=== PATIENT | male | born 1970 | race Caucasian/White ===

== ENCOUNTER 2022-05-08 13:35 | Inpatient (IN) | payer BC, MEDICAID ==
[~2022-05-08] VITALS: Ht 167.6 cm; Wt 59.0 kg
[2022-05-08 13:38] VITALS: BP 90/41
[2022-05-08] MEDS ORDERED: levETIRAcetam 1,000 MG in NACL 0.9% 100 ML IV ONE ×2 (13:45→18:00)
--- NOTE | 2022-05-08 13:48 | NUR ---
LAB AT BEDSIDE
--- NOTE | 2022-05-08 13:49 | NUR ---
51 Y/O MALE BIBA FROM HOME C/O SEIZURE, PER EMS 3 SEIZURES BEFORE EMS ARRIVAL UNKNOWN DURATION, WITNESSED BY FAMILY, 3 SEIZURES WITNESSED BY EMS, 10 SECONDS EACH, TONIC-CLONIC. GIVEN 2.5 MG OF VERSED BY EMS, PT NOW A/OX4, VERBALLY RESPONSIVE. NO ORAL TRAUMA OR SKIN TEARS NOTED, SEIZURE PADS IN PLACE NKA PMH: EPILEPSY (COMPLIANT WITH MEDICATION LAST TAKEN AT 0600 TODAY)
--- NOTE | 2022-05-08 13:51 | NUR ---
PT GIVEN URINAL
[2022-05-08 13:59] LABS: BASOPHILS # (AUTO) 0.1 K/uL (0.00-0.22); BASOPHILS % (AUTO) 1.1 % (0.0-2.0); EOSINOPHILS # (AUTO) 0.1 K/uL (0-0.4); HEMATOCRIT 42.9 % (36-52); HEMOGLOBIN 14.3 g/dL (12.0-18.0); LYMPHOCYTES # (AUTO) 0.9 K/uL (2.0-11.5); LYMPHOCYTES % (AUTO) 15.7 % (20.5-51.1); MEAN CORPUSCULAR HEMOGLOBIN 31 pg (27-31); MEAN CORPUSCULAR HGB CONC 33 g/dL (33-37); MEAN CORPUSCULAR VOLUME 93.9 fL (80-94); MONOCYTES # (AUTO) 0.4 K/uL (0.8-1.0); MONOCYTES % (AUTO) 7.2 % (1.7-9.3); NEUTROPHILS # (AUTO) 4.1 K/uL (1.8-7.7); PLATELET COUNT (AUTO) 190 K/uL (140-450); RED BLOOD CELL COUNT(AUTO) 4.57 MIL/uL (4.20-6.10); RED CELL DISTRIBUTION WIDTH 14.8 % (11.6-13.7); WHITE BLOOD COUNT (AUTO) 5.5 K/uL (4.8-10.8)
--- NOTE | 2022-05-08 14:00 | NUR ---
ZACK LOYD [phone]
--- NOTE | 2022-05-08 14:28 | NUR ---
PT STATED THAT HE IS UNABLE TO PROVIDE URINE AT THIS TIME
[2022-05-08 14:34] LABS: ALBUMIN 3.7 g/dL (3.4-5.0); ANION GAP 11.1 (8-16); CARBON DIOXIDE 26.9 mmol/L (21-32); CREATININE 0.9 mg/dL (0.6-1.3); TOTAL BILIRUBIN 0.4 mg/dL (0.0-1.0)
--- NOTE | 2022-05-08 15:35 | NUR ---
URINE HANDED TO Going TECH
--- NOTE | 2022-05-08 15:37 | NUR ---
DR RAZO SPEAKING TO IN LOBBY
[2022-05-08 15:57] LABS: BARBITURATE, URINE NEGATIVE ng/ml (NEG <=200); BENZODIAZEPINE, URINE NEGATIVE ng/mL (NEG <=200); CANNABINOID, URINE POSITIVE ng/mL (NEG <=50); COCAINE, URINE NEGATIVE ng/mL (NEG <=300); OPIATE, URINE NEGATIVE ng/mL (NEG <=2000); PHENCYCLIDINE SCREEN,URINE NEGATIVE ng/mL (NEG <=25)
--- NOTE | 2022-05-08 16:22 | NUR ---
MACHINE DEICER ELEMENT WINDER AT BEDSIDE
[2022-05-08] MEDS ORDERED: LEVE1000 PO (16:28)
[2022-05-08] MEDS ORDERED: GABA400C PO ×2 (16:28)
[2022-05-08] MEDS ORDERED: OMEP40EC23 PO (16:28)
[2022-05-08] MEDS ORDERED: LAM200 PO ×2 (16:28)
[2022-05-08] MEDS ORDERED: KETOROLAC 15 MG/ML VIAL IVP ONE (16:55)
--- NOTE | 2022-05-08 17:08 | NUR ---
SWABS HANDED TO PRADIP
[2022-05-08] MEDS ORDERED: LORazepam 2 MG/ML VIAL IVP ONE (18:00)
[2022-05-08] MEDS ORDERED: MORPHINE SULFATE 4 MG/ML SYR IVP ONE (18:05)
[2022-05-08] MEDS ORDERED: levETIRAcetam 500 MG TAB PO ONE (18:05)
--- NOTE | 2022-05-08 18:20 | NUR ---
pt taken to ct via ari[facility]
--- NOTE | 2022-05-08 18:28 | NUR ---
BACK FROM CT SCAN
--- NOTE | 2022-05-08 19:16 | NUR ---
REPORT GIVEN TO BELEM FARR, TRANSFER OF CARE AT THIS TIME
--- NOTE | 2022-05-08 19:22 | NUR ---
NUEROLOGIST AT BEDSIDEW
--- NOTE | 2022-05-08 19:40 | NUR ---
PER PT MAY HAVE FOOD TO EAT. PT'S STATED SHE GRAB HIM SOME FOOD.
--- NOTE | 2022-05-08 19:56 | NUR ---
SPOKE TO , HE WANTED CLARIFICATION TO WHERE PT SHOULD BE ADMITTED, STATED IT IS THE NEUROLOGIST PATRIZIA. DR. MUSA STATED PT CAN BE ADMITED TO TELE. STATED TELE IS OK THEN AND HE WILL PLACE ORDERS.
[2022-05-08] MEDS ORDERED: ONDANSETRON 4 MG/2 ML VIAL IVP PRN (20:00)
[2022-05-08] MEDS ORDERED: ACETAMINOPHEN 325 MG TAB PO PRN (20:00)
[2022-05-08] MEDS ORDERED: HYDROcodone/APAP 5/325 MG 1 TAB TAB PO PRN (20:00)
[2022-05-08] MEDS ORDERED: LORazepam 1 MG TAB PO PRN (20:00)
--- NOTE | 2022-05-08 20:45 | NUR ---
PAGED TO CLARIFY ORDERS PER PHARMACY. WAITING FOR CALL BACK.
[2022-05-08] MEDS ORDERED: GABAPENTIN 100 MG CAP PO SCH ×3 (21:00→21:48)
[2022-05-08] MEDS: levETIRAcetam 1,000 MG in NACL 0.9% 100 ML IV SCH (21:04)
--- NOTE | 2022-05-08 21:16 | NUR ---
SPOKE TO , STATED TO ASK PT HIS DOSAGE AND TIME OF ADMIN AND GO BY THAT. PT'S VERIFIED MEDICAITION. ORDERS CARRIED OUT. I CALLED AFTER HOURS PHARMCY AND SPOKE TO MEGAN ABOUT GOING FORTH WITH GABAPENTIN AND LAMICTAL. MICHELLE IS 400MG BID AND 600MG AT BEDTIME. LAMICTAL 200MG IN AM AND 300MG AT PM.
[2022-05-08 22:30] VITALS: BP 107/62
--- NOTE | 2022-05-08 22:34 | NUR ---
Patient will be admitted to [facility]. Admited to TELE. Will go to [id number]. Belongings list completed. Report to YORDAN SANTAMARIA.
[2022-05-09 05:00] VITALS: BP 96/53
--- NOTE | 2022-05-09 07:20 | NUR ---
RECEIVED BEDSIDE REPORT FROM [facility] YORDAN SANTAMARIA FOR CONTINUITY OF CARE. PT IS A&OX4 CURRENTLY RESTING IN BED. PT IS ON ROOM AIR, WITH UNLABORED BREATHING. PTS BED IS IN LOWEST POSITION, CALL LIGHT WITHIN REACH. PT HAS 20G IV ON THE RIGHT AC WHICH IS SALINE LOCKED. WILL CONTINUE TO MONITOR.
[2022-05-09 07:29] LABS: BASOPHILS % (AUTO) 0.4 % (0.0-2.0); EOSINOPHILS # (AUTO) 0.1 K/uL (0-0.4); EOSINOPHILS % (AUTO) 2.6 % (0.0-4.0); HEMATOCRIT 44.3 % (36-52); HEMOGLOBIN 14.9 g/dL (12.0-18.0); LYMPHOCYTES % (AUTO) 20.6 % (20.5-51.1); MEAN CORPUSCULAR HEMOGLOBIN 32 pg (27-31); MEAN CORPUSCULAR HGB CONC 34 g/dL (33-37); MONOCYTES # (AUTO) 0.4 K/uL (0.8-1.0); MONOCYTES % (AUTO) 8.5 % (1.7-9.3); NEUTROPHILS # (AUTO) 3.2 K/uL (1.8-7.7); NEUTROPHILS % (AUTO) 67.9 % (42.2-75.2); PLATELET COUNT (AUTO) 204 K/uL (140-450); RED BLOOD CELL COUNT(AUTO) 4.71 MIL/uL (4.20-6.10); RED CELL DISTRIBUTION WIDTH 14.8 % (11.6-13.7); WHITE BLOOD COUNT (AUTO) 4.8 K/uL (4.8-10.8)
--- NOTE | 2022-05-09 07:35 | NUR ---
PT CALLED STATING HE HAD 2 UNWITNESSED SEIZURES AND WAS IN VISIBLE DISTRESS AND ANXIETY. SPO2 ON ROOM AIR 100%, NO SIGNS OF INJURY NOTED. PT STATED HE FELT HIS AURAS; WHICH HE DESCRIBED A TINGLE ON HIS NOSE AND THE ROOM BEGINS SPINNING; AND FELT HIMSELF "STARE OFF INTO THE CEILING AND THEN SNAP OUT OF IT." MEDICATED PT WITH PRN ATIVAN. ENSURED SEIZURE PRECAUTIONS WERE IN PLACE.
[2022-05-09 08:00] VITALS: BP 124/77
[2022-05-09 08:04] LABS: ALBUMIN 3.4 g/dL (3.4-5.0); CARBON DIOXIDE 27.8 mmol/L (21-32); PHOSPHORUS 3.7 mg/dL (2.5-4.9); TOTAL BILIRUBIN 0.5 mg/dL (0.0-1.0)
[2022-05-09] MEDS ORDERED: NON-FORMULARY ITEM (Omeprazole* (Prilosec*) 1 CAP) PO SCH (09:00)
[2022-05-09] MEDS ORDERED: ENOXAPARIN 40 MG/0.4 ML SYR SUBQ SCH (09:00)
[2022-05-09] MEDS ORDERED: PANTOPRAZOLE 40 MG TABEC PO SCH (09:00)
[2022-05-09] MEDS ORDERED: DOCUSATE SODIUM 100 MG GELCAP PO SCH (09:00)
[2022-05-09 09:02] LABS: ANION GAP 11.8 (8-16); POTASSIUM 4.6 mmol/L (3.5-5.1)
[2022-05-09] MEDS: levETIRAcetam 1,000 MG in NACL 0.9% 100 ML IV SCH (09:33)
[2022-05-09] MEDS ORDERED: DIAZEPAM PFS 10 MG/2 ML SYR IM PRN (14:05)
[2022-05-09] MEDS ORDERED: DIAZ1KIT RC ×2 (14:41→14:46)
[2022-05-09] MEDS ORDERED: GABAPENTIN 300 MG CAP PO SCH (21:00)
== END 2022-05-09 16:44 | disposition home or self-care (01) | DRG 101 ==
LOC: MED 13:35 → MTU 20:05
PROVIDERS: ADMIT Hospitalist; ATTEND Hospitalist
PROC: 4A00X4Z Measurement of Central Nervous Electrical Activity, External Approach (ICD-10-PCS; principal; 2022-05-09)
DX: G40.909 Epilepsy, unspecified, not intractable, without status epilepticus (principal); K21.9 Gastro-esophageal reflux disease without esophagitis; Z20.822 Contact with and (suspected) exposure to COVID-19; G89.29 Other chronic pain; S19.9XXA Unspecified injury of neck, initial encounter; X58.XXXA Exposure to other specified factors, initial encounter; Y93.89 Activity, other specified; Y92.89 Other specified places as the place of occurrence of the external cause
CPT/HCPCS: 36415; 70450; 71045; 72100; 80053; 80173; 80299; 80305; 83605; 84100; 85025; 93005; 95816; 96365; 96366; 99285; J1650; J1885; J1953; J2060; J2270; Q0092